=== PATIENT | male | born 1995 | race African-American/Black ===

== ENCOUNTER 2017-10-05 20:40 | Emergency (ER) | payer OTHER ==
[~2017-10-05] VITALS: Ht 177.8 cm; Wt 75.0 kg
[2017-10-06] MEDS ORDERED: IBUPROFEN 600MG TABLET PO ONE (03:45)
[2017-10-06 06:00] VITALS: BP 118/62
== END 2017-10-06 05:40 | disposition home or self-care (01) ==
LOC: ER 23:10
DX: M25.532 Pain in left wrist (principal); W18.30XA Fall on same level, unspecified, initial encounter; Y93.9 Activity, unspecified; Y92.9 Unspecified place or not applicable
CPT/HCPCS: 29125; 73110; 99284